=== PATIENT | male | born 1970 | race Caucasian/White ===

== ENCOUNTER 2017-06-14 10:02 | Emergency (ER) | payer MEDICAID ==
[2017-06-14 10:14] VITALS: RESP 18
[2017-06-14] MEDS ORDERED: NS 1,000 ML IV ONE (10:26)
[2017-06-14] MEDS ORDERED: ONDANSETRON 4 MG/2 ML VIAL IVP ONE ×2 (10:42→11:54)
--- NOTE | 2017-06-14 10:45 | EDPHY ---
H & P Time Seen by Provider: 06/14/17 10:27 HPI/ROS: CHIEF COMPLAINT: Left flank pain, hematuria HISTORY OF PRESENT ILLNESS: 46-year-old male presents with left flank pain and hematuria. Onset of nausea and vomiting 3 days ago, continues to have vomiting. Associated with loose stools. Onset of left flank pain last evening. The pain is moderate to severe and constant. Associated with hematuria and dysuria. No alleviating or aggravating factors. No fever or chills. REVIEW OF SYSTEMS: Constitutional: No fever, no chills Eyes: No visual changes ENT: No sore throat Respiratory: No cough, no shortness of breath Cardiac: No chest pain Musculoskeletal: No myalgias Skin: No rash Neurological: No headache, no weakness Psychiatric: No depression Past Medical/Surgical History: TBI Splenectomy Appendectomy Social History: No recent alcohol Smoking Status: Former smoker Physical Exam: General Appearance: Alert, pleasant, does not appear in pain Eyes: Pupils equal and round, no conjunctival pallor ENT, Mouth: Mucous membranes moist Neck: Normal inspection Respiratory: Lungs are clear to auscultation Cardiovascular: Regular rate and rhythm Gastrointestinal: Abdomen is soft, left lower quadrant tenderness Back: Left CVA tenderness Neurological: A&O, nonfocal, normal gait Skin: Warm and dry, no rash Extremities: Normal inspection Psychiatric: Mood and affect normal Constitutional: Initial Vital Signs Temperature (C) 36.5 C 06/14/17 10:11 Heart Rate 86 06/14/17 10:11 Respiratory Rate 18 06/14/17 10:11 Blood Pressure 142/89 H 06/14/17 10:11 O2 Sat (%) 98 06/14/17 10:11 O2 Delivery Mode Room Air Allergies/Adverse Reactions: No Known Allergies Allergy (Unverified 06/14/17 10:10) Home Medications: Medication Instructions Recorded Ciprofloxacin [Cipro] 500 mg PO BID #20 tab 06/14/17 GABAPENTIN 06/14/17 Ondansetron Odt [Zofran Odt 4 mg 4 mg PO Q4 PRN #6 tab 06/14/17 (*)] metroNIDAZOLE [Flagyl 500 mg (*)] 500 mg PO BID #20 tab 06/14/17 Medical Decision Making ED Course/Re-evaluation: This patient presents with left flank pain and gross hematuria, suspicious for ureteral calculus. Stat noncontrast CT scan of the abdomen and pelvis ordered. Morphine 6 mg IV given for pain control. CT scan read by Dr. Enio Nichols reveals diverticulosis, no evidence of ureteral calculus. Results discussed with the patient. He continues to have left-sided abdominal pain and nausea. Abdomen is soft, left lower quadrant tenderness, no peritoneal signs. Given diverticulosis on CT scan, leukocytosis and left lower quadrant tenderness, I will treat him for diverticulitis. There is no evidence of urinary tract infection, though he does have hematuria. Encouraged f/u with PCP regarding hematuria. Differential Diagnosis: Differential diagnosis includes though it is not limited to appendicitis, cholecystitis, diverticulitis, pyelonephritis, bowel perforation, small bowel obstruction. - Data Points Laboratory Results: Laboratory Results 06/14/17 10:40 06/14/17 10:40 Medications Given: Discontinued Medications Sodium Chloride (Ns) 1,000 mls @ 0 mls/hr IV EDNOW ONE; Wide Open PRN Reason: Protocol Stop: 06/14/17 10:27 Last Admin: 06/14/17 10:49 Dose: 1,000 mls Ketorolac Tromethamine (Toradol) 15 mg IVP EDNOW ONE Stop: 06/14/17 11:29 Last Admin: 06/14/17 11:55 Dose: 15 mg Morphine Sulfate (Morphine) 6 mg IVP EDNOW ONE Stop: 06/14/17 10:43 Last Admin: 06/14/17 10:49 Dose: 6 mg Morphine Sulfate (Morphine) 6 mg IVP EDNOW ONE Stop: 06/14/17 12:13 Last Admin: 06/14/17 12:57 Dose: 6 mg Ondansetron HCl (Zofran) 4 mg IVP EDNOW ONE Stop: 06/14/17 10:43 Last Admin: 06/14/17 10:49 Dose: 4 mg Ondansetron HCl (Zofran) 4 mg IVP EDNOW ONE Stop: 06/14/17 11:55 Last Admin: 06/14/17 11:55 Dose: 4 mg Departure - Departure Disposition: Home, Routine, Self-Care Clinical Impression: Abdominal pain Qualifiers: Abdominal location: left lower quadrant Qualified Code(s): R10.32 - Left lower quadrant pain Condition: Good Instructions: Acute Abdominal Pain (ED) Additional Instructions: Your CT scan shows sigmoid diverticulosis. I suspect that you may have an infection of the diverticulosis, called diverticulitis. For this reason, I have prescribed 2 antibiotics. Keep your appointment with your surgeon tomorrow. Followup regarding the blood in your urine. Return for worsening symptoms or any concerns. Referrals: Dejan Sylvester MD [Medical Doctor] - As per Instructions Prescriptions: Ciprofloxacin [Cipro] 500 mg PO BID #20 tab metroNIDAZOLE [Flagyl 500 mg (*)] 500 mg PO BID #20 tab Ondansetron Odt [Zofran Odt 4 mg (*)] 4 mg PO Q4 PRN #6 tab PRN Reason: Nausea
[2017-06-14 10:49] LABS: PLATELET COUNT 482 10^3/uL (150-400)
[2017-06-14] MEDS ORDERED: KETOROLAC 15 MG/1 ML SDV IVP ONE (11:28)
[2017-06-14] MEDS ORDERED: ONDANSETRON 4 MG/2 ML VIAL ONE (11:53)
[2017-06-14 11:59] VITALS: TEMP 98.1
[2017-06-14 13:38] VITALS: BP 126/75; PULSE 82; O2SAT 95
== END 2017-06-14 13:52 | disposition home or self-care (01) ==
DX: R10.32 Left lower quadrant pain (principal); E86.9 Volume depletion, unspecified; Z87.891 Personal history of nicotine dependence
CPT/HCPCS: 82947-QW; 96374; J1885; J2405

== ENCOUNTER 2017-06-17 02:03 | Emergency (ER) | payer MEDICAID ==
[2017-06-17 02:14] VITALS: TEMP 97.7
[2017-06-17] MEDS ORDERED: ONDANSETRON 4 MG/2 ML VIAL IVP ONE ×2 (02:18→03:24)
[2017-06-17] MEDS ORDERED: NS 1,000 ML IV ONE (02:18)
[2017-06-17] MEDS ORDERED: HYDROmorphONE/DILAUDID 1 MG/ML INJ IVP ONE ×2 (02:18→03:30)
--- NOTE | 2017-06-17 02:19 | EDPHY ---
H & P Stated Complaint: abd pain/chest pain HPI/ROS: HPI CHIEF COMPLAINT: Worsening left lower quadrant abdominal pain with diarrhea, recent diagnosis of diverticulitis HISTORY OF PRESENT ILLNESS: This patient is a 46-year-old male, history of appendectomy and splenectomy in a traumatic brain injury, presents emergency room by EMS for left lower quadrant abdominal pain that he reports to me is getting worse. He distally reports that he has had bad diarrhea today. No vomiting but does endorse nausea. Denies fever but has had chills. He reports to the left lower pain radiates up into his left chest. Additionally he states when you press on his left chest he has pain. However his main complaint states 8/10 left lower quadrant abdominal pain with associated nausea. Past Medical History: Traumatic brain injury Past Surgical History: Appendectomy recently, splenectomy Social History: Denies daily use drugs alcohol tobacco. Family History: Noncontributory ROS REVIEW OF SYSTEMS: A comprehensive 10 point review of systems is otherwise negative aside from elements mentioned in the history of present illness. Exam Constitutional appears well nontoxic triage nursing summary reviewed, vital signs reviewed, awake/alert. Eyes normal conjunctivae and sclera, EOMI, PERRLA. HENT normal inspection, atraumatic, moist mucus membranes, no epistaxis, neck supple/ no meningismus, no raccoon eyes. Respiratory clear to auscultation bilaterally, normal breath sounds, no respiratory distress, no wheezing. Cardiovascular rate normal, regular rhythm, no murmur, no edema, distal pulses normal. Gastrointestinal tender palpation left lower quadrant, no rebound, no guarding , normal bowel sounds, no distension, no pulsatile mass. Genitourinary no CVA tenderness. Musculoskeletal no midline vertebral tenderness, full range of motion, no calf swelling, no tenderness of extremities, no meningismus, good pulses, neurovascularly intact. Skin pink, warm, & dry, no rash, skin atraumatic. Neurologic awake, alert and oriented x 3, AAOx3, moves all 4 extremities equally, motor intact, sensory intact, CN II-XII intact, normal cerebellar, normal vision, normal speech. Psychiatric normal mood/affect. Heme/Lymph/Immune no lymphadenopathy. Differential diagnosis includes but is not limited to and in no particular order : Worsening diverticulitis, Bowel obstruction, appendicitis, gallbladder disease, diverticulitis, colitis, enteritis, perforated viscus, gastritis, GERD , esophagitis, urinary tract infection, pyelonephritis, kidney stones Medical Decision Making: Plan for this patient IV establishment with blood draw , IV Dilaudid for acute pain control, IV Zofran for nausea, 1 L fluid bolus, CT scan abdomen pelvis with IV contrast, IV fluids basic blood work and re- evaluate. Obtain chest x-ray and EKG. Re-evaluation: EKG interpretation by me on record in [employer] system. Impression time of EKG 2:23 a.m., sinus rhythm motion artifact inferior leads. However I do not appreciate acute ischemic change. 0342: CT scan abdomen and pelvis with IV contrast shows no acute inflammatory process. No evidence of acute diverticulitis. No free fluid or free air. No inflammatory stranding. Unremarkable CT scan abdomen pelvis with IV contrast called to me by Dr. Guzman. ED x-ray chest one view: Negative for acute cardiopulmonary disease. 0442: Patient is resting comfortably no acute distress. I did reexamine his abdomen is soft nontender there is no guarding or peritoneal signs. His blood work and CT scan have been reviewed he does have a mild leukocytosis. Slightly up from previous ER visit. However CT scan does not show any acute inflammatory process. His vital signs have been stable here. He does not have a fever. His abdomen on re-examination soft nontender. He has not had any vomiting. I do feel that he can be discharged from the emergency room however if develops worsening abdominal pain fever vomiting he needs return. He understands this. I did go over return precautions with him and he understands. Would recommend he continue his Cipro for diverticulitis on outpatient basis return if worse. Source: Patient, EMS - Personal History Current Tetanus Diphtheria and Acellular Pertussis (TDAP): Yes - Medical/Surgical History Hx Asthma: No Hx Chronic Respiratory Disease: No Hx Diabetes: No Hx Cardiac Disease: No Hx Renal Disease: No Hx Cirrhosis: No Hx Alcoholism: No Hx HIV/AIDS: No Hx Splenectomy or Spleen Trauma: Yes Other PMH: appy/spleenectomy/trauma, seizures, cva, tbi, diverticulitis - Social History Smoking Status: Current some day smoker Constitutional: Initial Vital Signs Temperature (C) 36.5 C 06/17/17 02:03 Heart Rate 88 06/17/17 02:03 Respiratory Rate 22 H 06/17/17 02:03 Blood Pressure 137/99 H 06/17/17 02:03 O2 Sat (%) 100 06/17/17 02:03 O2 Delivery Mode Room Air Allergies/Adverse Reactions: No Known Allergies Allergy (Unverified 06/14/17 10:10) Home Medications: Medication Instructions Recorded Ciprofloxacin [Cipro] 500 mg PO BID #20 tab 06/14/17 GABAPENTIN 06/14/17 Ondansetron Odt [Zofran Odt 4 mg 4 mg PO Q4 PRN #6 tab 06/14/17 (*)] metroNIDAZOLE [Flagyl 500 mg (*)] 500 mg PO BID #20 tab 06/14/17 Bactrim DS 06/17/17 Medical Decision Making - Data Points Laboratory Results: Laboratory Results 06/17/17 02:25 06/17/17 02:25 06/17/17 06/17/17 06/17/17 02:25 02:25 02:25 WBC 14.60 10^3/uL H 10^3/uL (3.80-9.50) RBC 5.23 10^6/uL 10^6/uL (4.40-6.38) Hgb 15.6 g/dL g/dL (13.7-17.5) Hct 45.4 % % (40.0-51.0) MCV 86.8 fL fL (81.5-99.8) MCH 29.8 pg pg (27.9-34.1) MCHC 34.4 g/dL g/dL (32.4-36.7) RDW 13.9 % % (11.5-15.2) Plt Count 497 10^3/uL H 10^3/uL (150-400) MPV 9.7 fL fL (8.7-11.7) Neut % (Auto) 46.4 % % (39.3-74.2) Lymph % (Auto) 34.5 % % (15.0-45.0) [place] % (Auto) 15.1 % H % (4.5-13.0) Eos % (Auto) 2.5 % % (0.6-7.6) Baso % (Auto) 0.9 % % (0.3-1.7) Nucleat RBC Rel Count 0.0 % % (0.0-0.2) Absolute Neuts (auto) 6.77 10^3/uL H 10^3/uL (1.70-6.50) Absolute Lymphs (auto) 5.04 10^3/uL H 10^3/uL (1.00-3.00) Absolute Monos (auto) 2.21 10^3/uL H 10^3/uL (0.30-0.80) Absolute Eos (auto) 0.36 10^3/uL 10^3/uL (0.03-0.40) Absolute Basos (auto) 0.13 10^3/uL H 10^3/uL (0.02-0.10) Absolute Nucleated RBC 0.00 10^3/uL 10^3/uL (0-0.01) Immature Gran % 0.6 % % (0.0-1.1) Immature Gran # 0.09 10^3/uL 10^3/uL (0.00-0.10) PT 13.1 SEC SEC (12.0-15.0) INR 0.97 (0.83-1.16) APTT 34.1 SEC SEC (23.0-38.0) VBG Lactic Acid Sodium 145 mEq/L H mEq/L (134-144) Potassium 5.2 mEq/L mEq/L (3.5-5.2) Chloride 107 mEq/L mEq/L (97-110) Carbon Dioxide 21 mEq/l L mEq/l (22-31) Anion Gap 17 mEq/L H mEq/L (8-16) BUN 22 mg/dL mg/dL (7-23) Creatinine 1.0 mg/dL mg/dL (0.7-1.3) Estimated GFR > 60 Glucose 88 mg/dL mg/dL (70-100) Calcium 10.6 mg/dL H mg/dL (8.5-10.4) Total Bilirubin 0.4 mg/dL mg/dL (0.1-1.4) Conjugated Bilirubin 0.3 mg/dL mg/dL (0.0-0.5) Unconjugated Bilirubin 0.1 mg/dL mg/dL (0.0-1.1) AST 37 IU/L IU/L (17-59) ALT 48 IU/L IU/L (21-72) Alkaline Phosphatase 88 IU/L IU/L (38-126) Troponin I < 0.012 ng/mL ng/mL (0.000-0.034) Total Protein 8.0 g/dL g/dL (6.3-8.2) Albumin 4.6 g/dL g/dL (3.5-5.0) Lipase 155 IU/L IU/L (23-300) 06/17/17 02:25 WBC RBC Hgb Hct MCV MCH MCHC RDW Plt Count MPV Neut % (Auto) Lymph % (Auto) [place] % (Auto) Eos % (Auto) Baso % (Auto) Nucleat RBC Rel Count Absolute Neuts (auto) Absolute Lymphs (auto) Absolute Monos (auto) Absolute Eos (auto) Absolute Basos (auto) Absolute Nucleated RBC Immature Gran % Immature Gran # PT INR APTT VBG Lactic Acid 1.4 mmol/L mmol/L (0.7-2.1) Sodium Potassium Chloride Carbon Dioxide Anion Gap BUN Creatinine Estimated GFR Glucose Calcium Total Bilirubin Conjugated Bilirubin Unconjugated Bilirubin AST ALT Alkaline Phosphatase Troponin I Total Protein Albumin Lipase Medications Given: Discontinued Medications Hydromorphone HCl (Dilaudid) 1 mg IVP EDNOW ONE Stop: 06/17/17 02:19 Last Admin: 06/17/17 02:28 Dose: 1 mg Hydromorphone HCl (Dilaudid) 1 mg IVP EDNOW ONE Stop: 06/17/17 03:31 Last Admin: 06/17/17 03:33 Dose: 1 mg Sodium Chloride (Ns) 1,000 mls @ 0 mls/hr IV EDNOW ONE; Wide Open PRN Reason: Protocol Stop: 06/17/17 02:19 Last Admin: 06/17/17 02:28 Dose: 1,000 mls Ondansetron HCl (Zofran) 4 mg IVP EDNOW ONE Stop: 06/17/17 02:19 Last Admin: 06/17/17 02:28 Dose: 4 mg Ondansetron HCl (Zofran) 4 mg IVP EDNOW ONE Stop: 06/17/17 03:25 Last Admin: 06/17/17 03:26 Dose: 4 mg Departure - Departure Disposition: Home, Routine, Self-Care Clinical Impression: Abdominal pain Qualifiers: Abdominal location: unspecified location Qualified Code(s): R10.9 - Unspecified abdominal pain Condition: Good Instructions: Acute Abdominal Pain (ED) Additional Instructions: 1. [place] diet no spicy fatty greasy foods. 2. Return emergency room if develops worsening abdominal pain fever vomiting. Referrals: Patient,NotPresent [Unknown] - As per Instructions
[2017-06-17 02:32] LABS: PLATELET COUNT 497 10^3/uL (150-400)
[2017-06-17 02:40] LABS: INR 0.97 (0.83-1.16); PROTIME(PATIENT) 13.1 SEC (12.0-15.0)
[2017-06-17] MEDS ORDERED: IOPAMIDOL (ISOVUE-300) 100 ML BTL ONE (02:55)
--- NOTE | 2017-06-17 03:45 | CPEKG ---
Heart Rate: 77 RR Interval: 779 P-R Interval: 156 QRSD Interval: 88 QT Interval: 372 QTC Interval: 421 P [place]: 64 QRS [place]: 41 T Wave [place]: 43 EKG Severity - ABNORMAL ECG - EKG Impression: SINUS RHYTHM EKG Impression: PROBABLE INFERIOR INFARCT, OLD Electronically Signed By: Carlos Alberto Avelar 17-Jun-2017 06:37:56
[2017-06-17 04:57] VITALS: BP 116/77; PULSE 76; RESP 16; O2SAT 91
== END 2017-06-17 04:56 | disposition home or self-care (01) ==
LOC: EDUNIT#
PROC: 3E0337Z Introduction of Electrolytic and Water Balance Substance into Peripheral Vein, Percutaneous Approach (ICD-10-PCS; principal; 2017-06-17)
DX: R10.32 Left lower quadrant pain (principal); F17.200 Nicotine dependence, unspecified, uncomplicated; E86.9 Volume depletion, unspecified; Z90.49 Acquired absence of other specified parts of digestive tract; Z86.73 Personal history of transient ischemic attack (TIA), and cerebral infarction without residual deficits
CPT/HCPCS: 96374; J1170; J2405; Q9967

== ENCOUNTER 2017-06-18 15:28 | Emergency (ER) | payer MEDICAID ==
--- NOTE | 2017-06-18 15:40 | EDPHY ---
H & P Smoking Status: Current some day smoker Time Seen by Provider: 06/18/17 15:36 HPI/ROS: Chief complaint. Abdominal pain HPI. 46-year-old male with his 3rd visit to our emergency department with complaint of abdominal pain. Pain is located in the left lower quadrant of the abdomen and the penile shaft. No discharge. No dysuria or urinary symptoms. He has had sweats and chills but unknown fever. Patient had an appendectomy on 5172 weeks ago. Occasionally the pain from the left lower quadrant will radiate to his left thigh as well as to the left upper abdomen or lower chest. Otherwise no chest discomfort or shortness of breath. Pain is worse with lying down and hurts to sleep. The appendectomy was at [facility]. The patient stopped his Depakote secondary to the dosage that he felt was hard on his body and that he did not need such a high dose. His mental health workers were alarmed at this and sent him to the emergency department on an M1 for arm medication noncompliance. The patient has had nausea vomiting and some diarrhea. He was prescribed Cipro and Flagyl on 06/14/2017. The patient has also had a splenectomy. He had a CT on June 14 and June 17 which showed no obvious causes of his abdominal pain. It showed to my review diverticulosis but not diverticulitis. Patient also had an ultrasound of his testicles prior to his appendectomy. He reports his penis and testicles are normal. Pain is described as throbbing in the left lower quadrant and worse after urination and with lying down ROS Constitutional. Chills Eyes. no problems with vision ENT. no sore throat, no nasal drainage Cardiovascular. no chest pain Respiratory. no shortness of breath, no cough Abdominal. Left lower quadrant abdominal pain with nausea vomiting and diarrhea . no problems urinating MS. no calf pain/swelling, no neck/back pain, no joint pain Skin. no rash Lymph. no swollen glands Neuro. no headache, no dizziness, no difficulty walking or with speech (Wade Katz) Past Medical/Surgical History: Past medical history splenectomy, appendectomy, traumatic brain injury (Wade Katz) Social History: Single, daily smoker, no alcohol (Wade Katz) Physical Exam: General Appearance: Alert well-developed male mild distress vital signs are stable Eyes: Pupils equal and round no pallor or injection. ENT, Mouth: Mucous membranes are moist. Respiratory: There are no retractions, lungs are clear to auscultation. Cardiovascular: Regular rate and rhythm. Gastrointestinal: Abdomen is soft with tenderness in the left mid abdomen with palpation. Normal bowel sounds. No masses. Neurological: Awake and alert, sensory and motor exams grossly normal. Skin: Warm and dry, no rashes. Musculoskeletal: Neck is supple nontender. Extremities symmetrical, full range of motion. Psychiatric: Patient is oriented X 3, there is no agitation. (Wade Katz) Constitutional: Initial Vital Signs Temperature (C) 36.8 C 06/18/17 15:48 Heart Rate 88 06/18/17 15:48 Respiratory Rate 18 06/18/17 15:48 Blood Pressure 132/77 H 06/18/17 15:48 O2 Sat (%) 96 06/18/17 15:48 O2 Delivery Mode Room Air O2 (L/minute) 2 Allergies/Adverse Reactions: No Known Allergies Allergy (Unverified 06/14/17 10:10) Home Medications: Medication Instructions Recorded Ciprofloxacin [Cipro] 500 mg PO BID #20 tab 06/14/17 GABAPENTIN 06/14/17 Ondansetron Odt [Zofran Odt 4 mg 4 mg PO Q4 PRN #6 tab 06/14/17 (*)] metroNIDAZOLE [Flagyl 500 mg (*)] 500 mg PO BID #20 tab 06/14/17 Bactrim DS 06/17/17 Ciprofloxacin [Cipro] 500 mg PO BID #6 tab 06/20/17 Medical Decision Making Procedures: IV normal saline. Morphine for pain. (Wade Katz) ED Course/Re-evaluation: Re-evaluation 5:00 p.m.. Patient is stable. We discussed blood in his urine and decreased white blood cell count. He does not wish to have and her repeat abdominal CT. The abdominal CT on June 14 was done without contrast but did not show kidney stone. He would like referral to Urology He is medicated with Toradol and Zofran. Mental health labs are sent and he will be evaluated by mental health as he is on a M1 hold (Wade Katz) Differential Diagnosis: 2 weeks post appendectomy. Decreasing white blood cell count. [address]s on June 14 and June 17 without evidence for abscess. Patient had hematuria on June 14 and again today. There was no evidence for kidney stone on June 14. Plan is urology evaluation The patient also has not been taking his Depakote and is felt by mental health to require inpatient management (Wade Katz) Other Provider: 231 care assumed by me from Dr. Katz pending placement. 0700 patient signed out to Dr. Yo pending placement. No issues during my care this patient overnight (Marvel Gomez) I assumed care of the patient of the patient at 0700. He remained stable throughout my shift in the emergency department. His psychiatric disposition is pending. He will be turned over to Dr. Ike Cornejo at shift change. (Garrett Yo) 7:00 a.m.- Patient is stable throughout my shift. He did get antibiotics. Psychiatric placement is pending. Case is signed out to Dr. Lerner. (Paula Avila) Care assumed 1345 with inpatient placement pending. Signed to Margarita at 2300 with psych placement still pending. Received nicotine patch and his regular gabapentin here in ED. (Ike Cornejo) 10:00 a.m. the patient is feeling nauseous and states that he threw up in the bathroom. He continues to complain of abdominal pain. I evaluated him. He is walking around the room. No abdominal tenderness. He thinks that maybe the morphine made him nauseous that he had overnight. I will treat him with Reglan and. He is also complaining of a mild headache which he states frequently occurs. We continue to await psychiatric placement. 11:45 a.m. the patient has been re-evaluated by mental health. They would like to lift the hold and he feels like he is much better after getting some sleep. They are trying to get back into the rest but 14 daycare. Patient agrees with this plan. (Armond Lerner) Care Turn Over: Dr. Gomez at 2310 (Wade Katz) - Data Points Laboratory Results: Laboratory Results 06/18/17 16:10 06/18/17 16:10 Medications Given: Discontinued Medications Ciprofloxacin (Cipro) 500 mg PO BID ONE PRN Reason: Protocol Stop: 06/20/17 01:45 Last Admin: 06/20/17 01:50 Dose: 500 mg Ciprofloxacin (Cipro) 500 mg PO BID KAYLA PRN Reason: Protocol Stop: 07/20/17 08:59 Last Admin: 06/20/17 11:14 Dose: 500 mg Gabapentin (Neurontin) 600 mg PO EDNOW ONE Stop: 06/19/17 15:01 Last Admin: 06/19/17 15:13 Dose: 600 mg Gabapentin (Neurontin) 600 mg PO EDNOW ONE Stop: 06/19/17 20:41 Last Admin: 06/19/17 20:47 Dose: 600 mg Sodium Chloride (Ns) 1,000 mls @ 0 mls/hr IV EDNOW ONE; Wide Open PRN Reason: Protocol Stop: 06/18/17 16:00 Last Admin: 06/18/17 16:25 Dose: 1,000 mls Sodium Chloride (Ns) 1,000 mls @ 0 mls/hr IV EDNOW ONE; Wide Open PRN Reason: Protocol Stop: 06/18/17 16:00 Last Admin: 06/18/17 16:25 Dose: 1,000 mls Ketorolac Tromethamine (Toradol) 30 mg IVP EDNOW ONE Stop: 06/18/17 17:10 Last Admin: 06/18/17 17:34 Dose: 30 mg Metoclopramide HCl (Reglan) 10 mg PO ONCE ONE Stop: 06/20/17 10:00 Last Admin: 06/20/17 11:14 Dose: 10 mg Metronidazole (Flagyl) 500 mg PO BID ONE PRN Reason: Protocol Stop: 06/20/17 01:45 Last Admin: 06/20/17 01:49 Dose: 500 mg Metronidazole (Flagyl) 500 mg PO BID KAYLA PRN Reason: Protocol Stop: 07/20/17 08:59 Last Admin: 06/20/17 11:20 Dose: Not Given Morphine Sulfate (Morphine) 6 mg IVP EDNOW ONE Stop: 06/18/17 16:00 Last Admin: 06/18/17 16:24 Dose: 6 mg Morphine Sulfate (Morphine Ir) 10 mg PO EDNOW ONE Stop: 06/20/17 02:02 Last Admin: 06/20/17 02:18 Dose: Not Given Morphine Sulfate (Morphine Ir) 15 mg PO ONCE ONE Stop: 06/20/17 02:19 Last Admin: 06/20/17 02:52 Dose: 15 mg Nicotine (Nicoderm Cq) 21 mg TD EDNOW ONE Stop: 06/19/17 16:35 Last Admin: 06/19/17 16:57 Dose: 21 mg Ondansetron HCl (Zofran) 4 mg IVP EDNOW ONE Stop: 06/18/17 17:10 Last Admin: 06/18/17 17:34 Dose: 4 mg Ondansetron HCl (Zofran Odt) 4 mg PO EDNOW ONE Stop: 06/20/17 07:29 Last Admin: 06/20/17 07:54 Dose: 4 mg Departure - Departure Disposition: Home, Routine, Self-Care Clinical Impression: Acute psychosis Hematuria Qualifiers: Hematuria type: unspecified type Qualified Code(s): R31.9 - Hematuria, unspecified Abdominal pain Qualifiers: Abdominal location: left lower quadrant Qualified Code(s): R10.32 - Left lower quadrant pain Condition: Good Instructions: Brief Psychotic Disorder (ED), Hematuria (ED), Abdominal Pain (ED ) Additional Instructions: Drink plenty of fluids and stay hydrated point. Call urologist to schedule further evaluation of the cause of your abdominal pain and blood in your urine.. Return for worsening symptoms Referrals: Patient,NotPresent [Unknown] - As per Instructions Yariel Brown MD [Medical Doctor] - As per Instructions Prescriptions: Ciprofloxacin [Cipro] 500 mg PO BID #6 tab
[2017-06-18] MEDS ORDERED: NS 1,000 ML IV ONE ×2 (15:59)
[2017-06-18 16:24] LABS: PLATELET COUNT 514 10^3/uL (150-400)
[2017-06-18] MEDS ORDERED: ONDANSETRON 4 MG/2 ML VIAL IVP ONE (17:09)
[2017-06-18] MEDS ORDERED: KETOROLAC 30 MG/1 ML SDV IVP ONE (17:09)
[2017-06-19] MEDS ORDERED: GABAPENTIN 300 MG CAP PO ONE (15:00)
[2017-06-19] MEDS ORDERED: NICOTINE 21 MG/24 HR PATCH TD ONE (16:34)
[2017-06-19] MEDS ORDERED: GABAPENTIN 100 MG CAP PO ONE (20:40)
[2017-06-19 23:23] VITALS: O2SAT 97
[2017-06-20] MEDS ORDERED: metroNIDAZOLE 500 MG TAB PO ONE (01:44)
[2017-06-20] MEDS ORDERED: CIPROFLOXACIN 500 MG TAB PO ONE (01:44)
[2017-06-20] MEDS ORDERED: ONDANSETRON DISINTEGRATING 4 MG TAB PO ONE (07:28)
[2017-06-20 08:07] VITALS: BP 130/80; PULSE 69; RESP 18; TEMP 97.7
[2017-06-20] MEDS ORDERED: metroNIDAZOLE 500 MG TAB PO SCH (09:00)
[2017-06-20] MEDS ORDERED: CIPROFLOXACIN 500 MG TAB PO SCH (09:00)
[2017-06-20] MEDS ORDERED: METOCLOPRAMIDE 10 MG TAB PO ONE (09:59)
== END 2017-06-20 12:44 | disposition home or self-care (01) ==
LOC: EDUNIT#
DX: R10.32 Left lower quadrant pain (principal); R31.9 Hematuria, unspecified; F23 Brief psychotic disorder; E86.9 Volume depletion, unspecified; F17.200 Nicotine dependence, unspecified, uncomplicated; Z90.49 Acquired absence of other specified parts of digestive tract
CPT/HCPCS: 80305; 96374; G0480; J1885; J2405